=== PATIENT | female | born 1970 | race Hispanic/Latino ===

== ENCOUNTER 2024-07-11 20:04 | Emergency (ER) | payer OTHER ==
[~2024-07-11] VITALS: Ht 165.1 cm; Wt 74.8 kg
[2024-07-11 20:35] VITALS: PULSE 105; RESP 18; TEMP 97.3
[2024-07-11] MEDS ORDERED: FAMOTIDINE 20 MG/2 ML VIAL IV STA (21:03)
[2024-07-11] MEDS ORDERED: ONDANSETRON HCL INJ 2MG/ML 2ML 2 MG/ML VIAL IV STA (21:03)
[2024-07-11] MEDS: ONDANSETRON HCL 4 MG ORAL DISINTEGRATING TAB PO ONE (22:23)
[2024-07-11] MEDS: TRAMADOL HCL 50 MG TAB PO ONE (22:24)
[2024-07-11] MEDS ORDERED: FIORICET 50-301 EACH PO (23:58)
[2024-07-11] MEDS ORDERED: ONDANSETRON ODT4 MG PO (23:58)
[2024-07-12 00:07] VITALS: BP 155/79; PULSE 98; RESP 18; TEMP 97.3; O2SAT 98
== END 2024-07-12 00:07 | disposition home or self-care (01) ==
LOC: FSED 20:32
DX: R51.9 Headache, unspecified (principal); E11.9 Type 2 diabetes mellitus without complications; R21 Rash and other nonspecific skin eruption
CPT/HCPCS: 70450; 80053; 80307; 81003; 85025; 99283; Q0162